=== PATIENT | female | born 1970 | race Caucasian/White ===

== ENCOUNTER → 2017-11-16 | Outpatient (CLI) | payer BC ==
[~2017-11-16] MED LIST: CETIRIZINE; LORTAB 5/500 501 TAB PO; MAXALT10 MG PO; NASONEX0.05 MG/AC NS; NO HOME MEDICATIONS; TYLENOL 325MG325 MG PO
== END ==
LOC: MC.RAD 08:50
DX: Z12.31 Encounter for screening mammogram for malignant neoplasm of breast (principal)

== ENCOUNTER → 2017-12-20 | Outpatient (CLI) | payer BC | LOC: COL.RAD 07:12 | DX: D25.9 Leiomyoma of uterus, unspecified (principal); R87.619 Unspecified abnormal cytological findings in specimens from cervix uteri; N88.9 Noninflammatory disorder of cervix uteri, unspecified ==

== ENCOUNTER → 2020-06-03 | Outpatient (CLI) | payer BC | LOC: ZCOL.LAB 16:05 | DX: Z20.828 Contact with and (suspected) exposure to other viral communicable diseases (principal) ==

== ENCOUNTER → 2021-09-07 | Outpatient (CLI) | payer BC | LOC: MC.RAD 07:26 | DX: Z12.31 Encounter for screening mammogram for malignant neoplasm of breast (principal) ==

== ENCOUNTER → 2023-08-29 | Outpatient (CLI) | payer BC | LOC: MC.RAD 07:51 → COL.RAD 08:00 | DX: Z12.31 Encounter for screening mammogram for malignant neoplasm of breast (principal) ==